=== PATIENT | male | born 1955 | race African-American/Black ===

== ENCOUNTER 2020-03-17 07:52 | Outpatient (REF) | payer OTHER, SELFPAY ==
--- NOTE | 2020-03-17 | US_ITS ---
EXAMINATION: US RETROPERITONEAL LIMITED (AORTA) CLINICAL INFORMATION: Screening. COMPARISON: None TECHNIQUE: Mcintyre-scale, color Doppler and spectral Doppler evaluation of the abdominal aorta. FINDINGS: The aorta is normal. The measurements of the aorta in maximum AP and transverse dimensions respectively are as follows: Proximal: 2.4 x 2.0 cm. Mid: 1.8 x 1.7 cm. Distal: 1.7 x 1.5 cm. PSV: 81 cm/s. The measurements of the common iliac arteries in maximum AP and TRV dimensions are as follows: Right Common Iliac Artery: 1.0 x 0.9 cm. Left Common Iliac Artery: 1.0 x 0.8 cm. US/US aorta IMPRESSION: No evidence of abdominal aortic aneurysm.
== END 2020-03-17 07:53 | disposition home or self-care (01) ==
LOC: HO.US 07:52
PROVIDERS: Visit Provider Internal Medicine
DX: Z13.6 Encounter for screening for cardiovascular disorders (principal)
CPT/HCPCS: 76775

== ENCOUNTER 2020-07-21 10:24 | Outpatient (REF) | payer OTHER, SELFPAY ==
--- NOTE | ~2020-07-21 | US_ITS ---
EXAMINATION: US RETROPERITONEAL LIMITED (RENAL ONLY) CLINICAL INFORMATION: Abdominal pain. COMPARISON: Ultrasound abdomen 03/17/2020 TECHNIQUE: Real-time imaging of the kidneys. FINDINGS: RIGHT KIDNEY: 11.3 x 6.1 x 5.8 cm (SAG x AP x TRV). The kidney is normal in size, contour, and echogenicity. Renal cortical thickness is normal. No calculi or focal parenchymal lesions. No hydronephrosis. LEFT KIDNEY: 12.4 x 6.6 x 5.4 cm (SAG x AP x TRV). The kidney is normal in size, contour, and echogenicity. Renal cortical thickness is normal. No calculi or focal parenchymal lesions. No hydronephrosis. The bladder is decompressed and not evaluated. Bladder appointment has been rescheduled.. US/US renal BI IMPRESSION: Unremarkable renal ultrasound. The bladder ultrasound has been rescheduled.
== END 2020-07-21 10:25 | disposition home or self-care (01) ==
LOC: HO.US 10:24
PROVIDERS: PCP Internal Medicine; Visit Provider Registered Nurse Community Health
DX: R10.9 Unspecified abdominal pain (principal)
CPT/HCPCS: 76775

== ENCOUNTER 2020-07-27 14:23 | Outpatient (REF) | payer OTHER, SELFPAY ==
--- NOTE | ~2020-07-27 | US_ITS ---
EXAMINATION: US PELVIS LIMITED (BLADDER) CLINICAL INFORMATION: Abdominal pain. COMPARISON: Ultrasound renal 11/20/2020. TECHNIQUE: Real-time imaging of the bladder. Grayscale imaging and color Doppler are performed. FINDINGS: The bladder is distended symmetrically and shows no focal wall thickening, diverticulum, calculus, or debris at bladder base. There are ureteral jets at the bladder base. Prevoid bladder volume 158 mL. Postvoid bladder residual volume 3 mL. The prostate is not well visualized. Overall size approximately 27 mL. US/US bladder IMPRESSION: 1. No focal bladder wall thickening or diverticulum. 2. Post void bladder residual volume of only 3 mL. 3. Prostate size approximately 27 mL.
== END 2020-07-27 14:24 | disposition home or self-care (01) ==
LOC: HO.US 14:23
PROVIDERS: Visit Provider Registered Nurse Community Health
DX: R10.9 Unspecified abdominal pain (principal)
CPT/HCPCS: 76857

== ENCOUNTER 2022-12-27 18:59 | Outpatient (REF) | payer OTHER, SELFPAY ==
[2022-12-28 16:40] LABS: H Pylori Breath Test Positive (Negative)
== END 2022-12-27 19:00 | disposition home or self-care (01) ==
LOC: HO.HHCLNP 18:59
PROVIDERS: Visit Provider Internal Medicine
DX: K21.9 Gastro-esophageal reflux disease without esophagitis (principal); Z11.0 Encounter for screening for intestinal infectious diseases
CPT/HCPCS: 83013

== ENCOUNTER 2023-01-04 10:04 | Outpatient (AMB) | payer OTHER, SELFPAY ==
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
[2023-01-04 10:15] VITALS: BP 115/78; PULSE 93; O2SAT 97; BMI 24.5
== END 2023-01-04 10:37 | disposition home or self-care (01) ==
PROVIDERS: PCP Internal Medicine; Visit Provider Nurse Practitioner Family
DX: M47.816 Spondylosis without myelopathy or radiculopathy, lumbar region (principal); M54.16 Radiculopathy, lumbar region; M62.838 Other muscle spasm
CPT/HCPCS: 99204

== ENCOUNTER → 2023-01-04 10:04 | Outpatient (BNVA) | payer OTHER, SELFPAY | PROVIDERS: PCP Internal Medicine; Visit Provider Nurse Practitioner Family ==

== ENCOUNTER 2023-02-05 06:15 | Outpatient (REF) | payer OTHER, SELFPAY ==
--- NOTE | ~2023-02-05 | FL_ITS ---
EXAMINATION: XR FLUOROSCOPY WITH IMAGES CLINICAL INFORMATION: Spondylosis without myelopathy or radiculopathy, lumbar region. COMPARISON: None available. TECHNIQUE: Fluoroscopy Supervised By: Dr. Dwayne Paige. Fluoroscopy Time: 0.4 minutes. Cumulative Dose: 6.00 mGy. DAP: 0.104 Gycm2. Images: 3. FINDINGS: Images demonstrate contrast injection adjacent to the bilateral lateral L3, L4 and L5 vertebrae FL/FL guidance in treatment room IMPRESSION: Fluoroscopy guidance for pain management procedure
== END 2023-02-05 06:16 | disposition home or self-care (01) ==
LOC: CF 06:15
PROVIDERS: Visit Provider Anesthesiology
DX: M47.816 Spondylosis without myelopathy or radiculopathy, lumbar region (principal)
CPT/HCPCS: 64493; 64494; J2795; Q9967

== ENCOUNTER 2023-02-05 10:32 | Outpatient (AMB) | payer OTHER, SELFPAY ==
[2023-02-05 10:58] VITALS: BMI 24.5
--- NOTE | 2023-02-05 10:58 | A.OFFVIS_ITS ---
Intake Vital Signs 02/05/23 10:58 02/05/23 10:58 02/05/23 11:41 Height 5 ft 9 in 5 ft 9 in Weight 166 lb 166 lb BMI 24.5 24.5 BP 110/70 Blood Pressure Location Lt radial Position Sitting Respiration 12 Pulse 79 Pulse Source Pulse Oximeter Pulse Oximetry (%) 98 Oxygen Delivery Method Room Air Comment pre-op post-op Intake Visit Reasons: BILATERAL DIAGNOSTIC L3, L4, DRL5 MBB Allergies No Known Allergies Allergy (Mild, Verified 01/04/23 10:11) NONE PFSH Medical History (Updated 01/04/23 @ 10:39 by Hanh Gtz) Diabetes Osteoarthritis of spine with radiculopathy, lumbar region Left anterior shoulder pain Right arm numbness Positive Helicobacter pylori test Polyp of colon Malignant tumor of prostate Hyperlipidemia Lumbar sprain Hypertension Chronic gastritis Erectile dysfunction GERD (gastroesophageal reflux disease) Epigastric pain Depressive disorder Surgical History (Updated 01/04/23 @ 10:39 by Hanh Gtz) History of implantation of penile prosthesis Social History (Updated 01/04/23 @ 10:33 by Hanh Gtz) Alcohol intake: current Alcohol type: beer Patient Tobacco Use Status: Never used Tobacco Substance Use Type: Crack/Cocaine Physical Exam Vital Signs: Last Vital Signs Pulse 79 02/05/23 11:41 Resp 12 02/05/23 11:41 BP 110/70 02/05/23 11:41 Pulse Ox 98 02/05/23 11:41 Oxygen Delivery Method Room Air 02/05/23 11:41 BMI result Body Mass Index 24.5 Assessment & Plan Assessment & Plan (1) Lumbar spondylosis: Code(s): M47.816 - Spondylosis without myelopathy or radiculopathy, lumbar region Plan Diagnostic medial branch block L3,L4 dorsal ramus L5 bilateral.? ? ?Informed consent was explained to the patient. All questions were explained and? answered.? The patient was taken inside the operating room where she was positioned prone on the operating table. Time-out was performed delineating correct site, side, the nature of the procedure, patient's allergy, . All operating room staff was participating in OR time-out procedure. ? ? The lower back was prepped with ChloraPrep and draped with sterile towels.? C- arm was brought over the operating field and sq picture of L4-, L5 vertebra and S1 AREA were delineated on the screen.? Point of interest were delineated as confluence of superior articular process of L4 and L5 vertebra bilaterally with corresponding transverse processes as well as confluence of the sacral alae bilaterally with superior articular process of S1.? The projection of the point of interest to the skin were injected with the small amount of local anesthetic lidocaine 2% 1-1.5 cc.? After that 22 gauge 3.5 inch spinal needle was driven sequentially to the points of interest in tunnel vision fashion. After needles gently contacted the bone at the point of interests the needle was injected with small amount of the contrast.? The injection of the contrast did not demonstrate any intravascular or intrathecal spread of the contrast.? After that injection of the? ropivacaine 0.5%-1cc was performed at each needle location.??after that the needles were removed and Bandaids were applied. ? Upon completion of the injections? needle was? removed and sterile Band-Aids were applied.? The patient tolerated procedure very well. Orders: Orders FL guidance in treatment room Today M47.816 - Spondylosis without myelopathy or radiculopathy, lumbar region Coding Level of Care Code Procedure Only Diagnoses Lumbar spondylosis M47.816
[2023-02-05 11:41] VITALS: BP 110/70; PULSE 79; RESP 12; O2SAT 98
== END 2023-02-05 11:41 | disposition home or self-care (01) ==
LOC: HO.PMCPRC 10:32
PROVIDERS: PCP Internal Medicine; Visit Provider Anesthesiology
DX: M47.816 Spondylosis without myelopathy or radiculopathy, lumbar region (principal)
CPT/HCPCS: 64493; 64494

== ENCOUNTER 2023-02-12 11:07 | Outpatient (AMB) | payer OTHER, SELFPAY ==
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
[2023-02-12 11:16] VITALS: BP 118/72; PULSE 78; O2SAT 99; BMI 24.4
== END 2023-02-12 11:49 | disposition home or self-care (01) ==
PROVIDERS: PCP Internal Medicine; Visit Provider Nurse Practitioner Family
DX: M54.16 Radiculopathy, lumbar region (principal); M47.816 Spondylosis without myelopathy or radiculopathy, lumbar region; M62.838 Other muscle spasm
CPT/HCPCS: 99214

== ENCOUNTER → 2023-02-12 11:07 | Outpatient (BNVA) | payer OTHER, SELFPAY | PROVIDERS: PCP Internal Medicine; Visit Provider Nurse Practitioner Family | DX: M54.16 Radiculopathy, lumbar region (principal); M47.816 Spondylosis without myelopathy or radiculopathy, lumbar region; M62.838 Other muscle spasm | CPT/HCPCS: 99212 ==

== ENCOUNTER 2023-03-06 10:25 | Outpatient (REF) | payer OTHER, SELFPAY ==
--- NOTE | ~2023-03-06 | XR_ITS ---
EXAMINATION: XR LUMBOSACRAL SPINE WITH OBLIQUES CLINICAL INFORMATION: Low back pain, lumbar radiculopathy COMPARISON: Lumbar spine x-rays on 04/27/2019 TECHNIQUE: AP, both oblique, and lateral views of the lumbar spine. Lateral view of lumbosacral junction, Lateral flexion and extension views of lumbar spine. FINDINGS: The visualized lumbar vertebrae are intact with normal alignment. Intervertebral disc spaces are mildly decreased at L4-L5 and L5-S1 level. Bilateral oblique x-rays of lumbar spine show intact articular processes with no evidence of spondylolysis. Alignment of lumbar spine is normal and stable in flexion and extension. XR/XR lumbar spine 6V w bending IMPRESSION: 1. Unchanged Mild L4-L5 and L5-S1 degenerative lumbar disc disease. 2. No fracture or dislocation of lumbar spine is seen. 3. Normal stable alignment of lumbar spine in flexion and extension is demonstrated.
== END 2023-03-06 10:26 | disposition home or self-care (01) ==
LOC: HO.XRAY 10:25
PROVIDERS: PCP Internal Medicine; Visit Provider Nurse Practitioner Family
DX: M54.16 Radiculopathy, lumbar region (principal); M47.816 Spondylosis without myelopathy or radiculopathy, lumbar region
CPT/HCPCS: 72114

== ENCOUNTER 2023-04-30 06:15 | Outpatient (REF) | payer OTHER, SELFPAY ==
--- NOTE | ~2023-04-30 | FL_ITS ---
EXAMINATION: XR FLUOROSCOPY WITH IMAGES CLINICAL INFORMATION: Spondylosis without myelopathy. COMPARISON: None available. TECHNIQUE: Fluoroscopy Supervised By: Dr. Summer Manriquez. Fluoroscopy Time: 0.5 minutes. Cumulative Dose: 6.06 mGy. DAP: 0.105 Gycm2. Images: 6. FINDINGS: 6 images demonstrate needles on both the left and right sides at what is most likely L4-L5 and L5-S1. FL/FL guidance in treatment room IMPRESSION: Fluoroscopy and spot films provided during lumbar injections.
== END 2023-04-30 06:16 | disposition home or self-care (01) ==
LOC: CF 06:15
PROVIDERS: Visit Provider Anesthesiology
DX: M47.816 Spondylosis without myelopathy or radiculopathy, lumbar region (principal)
CPT/HCPCS: 64493; 64494; J2795; J3301; Q9967

== ENCOUNTER 2023-04-30 13:00 | Outpatient (AMB) | payer OTHER, SELFPAY ==
--- NOTE | 2023-04-30 13:06 | A.OFFVIS_ITS ---
Intake Vital Signs 04/30/23 13:16 04/30/23 13:16 Height 5 ft 9 in 5 ft 9 in Weight 165 lb 4 oz 165 lb 4 oz BMI 24.4 24.4 BP 114/60 116/70 Blood Pressure Location Lt brachial Lt brachial Position Sitting Sitting Respiration 14 14 Pulse 87 84 Pulse Source Pulse Oximeter Pulse Oximeter Pulse Oximetry (%) 96 97 Oxygen Delivery Method Room Air Room Air Comment pre-op Post-op Intake Visit Reasons: BILATERAL THERAPEUTIC L3, L4, L5 MBB Allergies No Known Allergies Allergy (Mild, Verified 04/30/23 13:17) NONE PFSH Medical History Diabetes Osteoarthritis of spine with radiculopathy, lumbar region Left anterior shoulder pain Right arm numbness Positive Helicobacter pylori test Polyp of colon Malignant tumor of prostate Hyperlipidemia Lumbar sprain Hypertension Chronic gastritis Erectile dysfunction GERD (gastroesophageal reflux disease) Epigastric pain Depressive disorder Surgical History History of implantation of penile prosthesis Social History Alcohol intake: current Alcohol type: beer Patient Tobacco Use Status: Never used Tobacco Substance Use Type: Crack/Cocaine Physical Exam Vital Signs: Last Vital Signs Pulse 84 04/30/23 13:16 Resp 14 04/30/23 13:16 BP 116/70 04/30/23 13:16 Pulse Ox 97 04/30/23 13:16 Oxygen Delivery Method Room Air 04/30/23 13:16 BMI result Body Mass Index 24.4 Assessment & Plan Assessment & Plan (1) Lumbar spondylosis: Code(s): M47.816 - Spondylosis without myelopathy or radiculopathy, lumbar region Plan Diagnostic medial branch block L3,L4 dorsal ramus L5 bilateral.? ? ?Informed consent was explained to the patient. All questions were explained and? answered.? The patient was taken inside the operating room where she was positioned prone on the operating table. Time-out was performed delineating correct site, side, the nature of the procedure, patient's allergy, . All operating room staff was participating in OR time-out procedure. ? ? The lower back was prepped with ChloraPrep and draped with sterile towels.? C- arm was brought over the operating field and sq picture of L4-, L5 vertebra and S1 AREA were delineated on the screen.? Point of interest were delineated as confluence of superior articular process of L4 and L5 vertebra bilaterally with corresponding transverse processes as well as confluence of the sacral alae bilaterally with superior articular process of S1.? The projection of the point of interest to the skin were injected with the small amount of local anesthetic lidocaine 2% 1-1.5 cc.? After that 22 gauge 3.5 inch spinal needle was driven sequentially to the points of interest in tunnel vision fashion. After needles gently contacted the bone at the point of interests the needle was injected with small amount of the contrast.? The injection of the contrast did not demonstrate any intravascular or intrathecal spread of the contrast.? After that injection of the? ropivacaine 0.5%-1cc mixed with kenalog was performed at each needle location.?Total dose of kenalog was 40 mg.?after that the needles were removed and Bandaids were applied. ? Upon completion of the injections? needle was? removed and sterile Band-Aids were applied.? The patient tolerated procedure very well. Orders: Orders FL guidance in treatment room Today M47.816 - Spondylosis without myelopathy or radiculopathy, lumbar region Coding Level of Care Code Procedure Only Diagnoses Lumbar spondylosis M47.816
[2023-04-30 13:16] VITALS: BP 114/60; BP 116/70; PULSE 84; PULSE 87; RESP 14; O2SAT 96; O2SAT 97; BMI 24.4
== END 2023-04-30 13:55 | disposition home or self-care (01) ==
LOC: HO.PMCPRC 13:00
PROVIDERS: PCP Internal Medicine; Visit Provider Anesthesiology
DX: M47.816 Spondylosis without myelopathy or radiculopathy, lumbar region (principal)
CPT/HCPCS: 64493; 64494

== ENCOUNTER 2023-05-30 11:21 | Outpatient (AMB) | payer OTHER, SELFPAY ==
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
[2023-05-30 11:27] VITALS: BP 126/74; PULSE 94; RESP 16; O2SAT 97; BMI 24.8
== END 2023-05-30 11:45 | disposition home or self-care (01) ==
PROVIDERS: PCP Internal Medicine; Visit Provider Nurse Practitioner Family
DX: M54.16 Radiculopathy, lumbar region (principal); M54.51 Vertebrogenic low back pain; M47.816 Spondylosis without myelopathy or radiculopathy, lumbar region; M62.838 Other muscle spasm
CPT/HCPCS: 99214

== ENCOUNTER → 2023-05-30 11:21 | Outpatient (BNVA) | payer OTHER, SELFPAY | PROVIDERS: PCP Internal Medicine; Visit Provider Nurse Practitioner Family | DX: M54.16 Radiculopathy, lumbar region (principal); M54.51 Vertebrogenic low back pain; M47.816 Spondylosis without myelopathy or radiculopathy, lumbar region; M62.838 Other muscle spasm | CPT/HCPCS: 99212 ==

== ENCOUNTER 2023-07-01 16:51 | Outpatient (REF) | payer OTHER, SELFPAY ==
--- NOTE | ~2023-07-01 | MR_ITS ---
EXAMINATION: MR LUMBAR SPINE WITHOUT CONTRAST CLINICAL INFORMATION: Lumbar radiculopathy. COMPARISON: Lumbar spine MRI from 05/13/2019. Lumbar spine radiographs from 03/06/2023. CT abdomen and pelvis from 12/20/2020. TECHNIQUE: MRI of the lumbar spine was obtained using routine sequences without contrast. FINDINGS: Straightening of the normal lumbar lordosis. Otherwise, normal anatomic alignment. Moderate degenerative disc disease at L4-L5 and L5-S1. Minimal degenerative disc disease at L1-L2 and L3-L4. Associated mild mixed Modic type discogenic and plate changes including mild metacarpal and vasogenic edema at L5-S1. Lipid rich hemangioma within the T12 vertebral body. No additional suspicious marrow edema. The vertebral body heights are well-maintained. The conus medullaris terminates at the level of L1-L2. The distal spinal cord is normal in appearance. Mild subcutaneous edema within the posterior soft tissues of the back below the level of L5. No additional significant abnormalities of the paraspinal musculature. Limited evaluation of the intra-abdominal structures without significant abnormalities. The abdominal aorta is of normal contour and caliber. AXIAL SPINAL LEVELS: T12-L1: Normal annular contour. There is mild bilateral facet joint arthropathy. There is no neural foraminal stenosis. There is no spinal canal stenosis. L1-L2: Normal annular contour. There is mild bilateral facet joint arthropathy. There is no neural foraminal stenosis. There is no spinal canal stenosis. L2-L3: Shallow diffuse disc bulge. There is mild bilateral facet joint arthropathy. There is no neural foraminal stenosis. There is no spinal canal stenosis. L3-L4: Minimal diffuse disc bulge. There is mild bilateral facet joint arthropathy. There is mild right and no left neural foraminal stenosis. There is no spinal canal stenosis. L4-L5: Moderate diffuse disc bulge with superimposed small central/left subarticular disc extrusion with inferior migration. There is mild bilateral facet joint arthropathy. There is moderate bilateral neural foraminal stenosis. There is stenosis of the left subarticular zone with no overt spinal canal stenosis centrally. L5-S1: Moderate diffuse disc bulge with posterior osseous ridging and superimposed central disc protrusion. There is mild bilateral facet joint arthropathy. There is moderate right and mild left neural foraminal stenosis. There is narrowing of the right-sided radicular zone with no overt spinal canal stenosis centrally. MR/MR lumbar spine wo con IMPRESSION: Mild to moderate multilevel degenerative spondyloarthropathy of the lumbar spine as described in detail above. Most notably, there are moderate neural foraminal stenoses at L4-L5 and L5-S1. Narrowing/stenoses of the subarticular zones at L4-L5 and L5-S1. No overt spinal canal stenosis centrally. Overall, degenerative changes are mildly progressed compared to 2020.
== END 2023-07-01 16:52 | disposition home or self-care (01) ==
LOC: HO.MRI 16:51
PROVIDERS: PCP Internal Medicine; Visit Provider Nurse Practitioner Family
DX: M54.16 Radiculopathy, lumbar region (principal); M54.51 Vertebrogenic low back pain
CPT/HCPCS: 72148

== ENCOUNTER 2023-08-12 11:14 | Outpatient (AMB) | payer OTHER, SELFPAY ==
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
[2023-08-12 11:30] VITALS: BP 141/75; PULSE 77; O2SAT 97; BMI 24.5
== END 2023-08-12 12:12 | disposition home or self-care (01) ==
PROVIDERS: PCP Internal Medicine; Visit Provider Nurse Practitioner Family
DX: M25.561 Pain in right knee (principal); M25.562 Pain in left knee; M47.816 Spondylosis without myelopathy or radiculopathy, lumbar region; M54.16 Radiculopathy, lumbar region; M54.51 Vertebrogenic low back pain; M62.838 Other muscle spasm
CPT/HCPCS: 99214

== ENCOUNTER → 2023-08-12 11:14 | Outpatient (BNVA) | payer OTHER, SELFPAY | PROVIDERS: PCP Internal Medicine; Visit Provider Nurse Practitioner Family | DX: M25.561 Pain in right knee (principal); M25.562 Pain in left knee; M47.816 Spondylosis without myelopathy or radiculopathy, lumbar region; M54.16 Radiculopathy, lumbar region; M54.51 Vertebrogenic low back pain; M62.838 Other muscle spasm | CPT/HCPCS: 99212 ==

== ENCOUNTER 2023-08-19 10:00 | Outpatient (AMB) | payer OTHER, SELFPAY ==
--- NOTE | 2023-08-19 10:03 | A.SPINEOV_ITS ---
Intake Visit Reasons: Radiculopathy, lumbar region Intake Note: Mr. Rooney is here today c/o low back sciatica pain that radiates to both legs Business Transformation Consultant Required: Yes Business Transformation Consultant Name: Tablet Allergies No Known Allergies Allergy (Mild, Verified 08/19/23 10:17) NONE Assessment & Plan Assessment & Plan (1) Vertebrogenic low back pain: Code(s): M54.51 - Vertebrogenic low back pain Category: Medical Plan Dear Cherri, Thank you for referring Mr Rooney to our office today. This is a 67-year-old who has had back pain for many years. The back pain is centralized in the lower lumbar region. It will radiate down to his anterior thighs at times. He tells me that it is aggravated in all situations in all positions. Lying down is just as uncomfortable as sitting up as is walking etc.. He is trialed conservative treatment in the form of chiropractic, injections and acupuncture. He did get good relief from the dorsal rami median branch blocks that were done by your office but is worried about the chronic effects of the steroids in his bones. He did not try any formal physical therapy he tells me. He has very little quality of life because of the pain. He was sent today for evaluation in setting of an MRI showing degenerative disc disease. PMH: He is a diabetic, he does not know what his A1c is but was told by his primary care physician that it was well controlled. He has history of high blood pressure. Outside of that he does not report any major medical problems other than a prostatectomy that was done because it was felt the patient had precancerous findings in his prostate. He voids normally. He tells me that he has no problems with his heart, lungs, kidneys, abdomen, liver, no history of coagulopathies bleeding disorders blood clots etc. Social hx: He does not smoke, drink or use any recreational drugs Medications: Baby aspirin, Klonopin, diclofenac gel, Jardiance, gabapentin, glimepiride, ibuprofen, ketoconazole, lansoprazole, lisinopril, loratadine, methocarbamol, oxybutynin, quetiapine, tramadol Allergies: None Physical exam: He is uncomfortable with standing, is very limited range of motion with getting vertical. He does not demonstrate any signs of weakness in his legs but has a lot of pain with manipulation of his legs but no true motor dysfunction. Reflexes are absent at the patella and the Achilles. Imaging review: He has a lumbar MRI done at [facility] as well as flexion-extension x-rays. At L4-5 there is mlfh-gu-epoegzlm disc degeneration with left-sided disc bulge which is contacting the left L5 nerve root. This is consistent with MRI done in 2020 looks almost exactly the same. He has moderate disc degeneration at L5-S1 with no obvious contact of the nerve structures either central canal or in the foramen. This is also consistent with his MRI 2020. I do not see any evidence of instability on flexion-extension with his x- rays done last year. I will repeat these as a precautionary measure. Impression: 67-year-old male presents with what is primarily back pain with intermittent radiculopathy done to the front of his thighs. He has hobq-ni-fzpcnoty disc degeneration at L4-5 with a left-sided only disc bulge contacting the left L5 nerve root which appears to be stable over the last 4 years. He has moderate disc degeneration at L5-S1. Again this is unchanged over the course of 4 years. Overall his alignment and disc quality is really not all that bad and has not changed over the course of 4 years despite his pain getting worse. I am not sure if his symptoms are discogenic, but may rather be coming from something in the soft tissues of the back. I am going to repeat flexion-extension x-rays as a precaution but his previous set did not show any signs of instability or structural changes in the vertical posture. If he had something more consistent with a strict radiculopathy on the left we might be willing to offer him a radiculopathy but as of right now both of his legs have pain and discomfort. I am going to review his imaging with Dr. Yost see if he has any other thoughts. Thank you for allowing us to care for your patient. The total time spent with this visit with this patient was 45 minutes reviewing history, physical exam, lumbar imaging review, and implementation of treatment plan or further diagnostic testing Elvis Yost MD,PhD [facility] Orders: Orders XR lumbar spine 4V min Today M54.51 - Vertebrogenic low back pain Coding Level of Care Code New Pt Level 4 (47042) Diagnoses Vertebrogenic low back pain M54.51
== END 2023-08-19 11:51 | disposition home or self-care (01) ==
PROVIDERS: PCP Internal Medicine; Referring Provider Nurse Practitioner Family; Visit Provider Physician Assistant
DX: M54.51 Vertebrogenic low back pain (principal)
CPT/HCPCS: 99204

== ENCOUNTER 2023-08-19 10:00 | Outpatient (REF) | payer OTHER, SELFPAY ==
--- NOTE | ~2023-08-19 | XR_ITS ---
EXAMINATION: XR LUMBOSACRAL SPINE WITH OBLIQUES CLINICAL INFORMATION: Vertebrogenic low back pain. COMPARISON: MRI lumbar spine 07/01/2023. Lumbar spine radiographs 03/06/2023. TECHNIQUE: 4 views of the lumbosacral spine including AP, lateral neutral, flexion and extension views. FINDINGS: Slight levoscoliosis of the lumbar spine. Degenerative changes in the bilateral sacroiliac joints. Facet arthritis in the lower lumbar spine. Mild loss of disc space height at L4-L5 and L5-S1. Alignment maintained on flexion and extension views. XR/XR lumbar spine 4V min IMPRESSION: Mild degenerative disc disease at L4-L5 and L5-S1.
== END 2023-08-19 10:01 | disposition home or self-care (01) ==
LOC: HO.HOSX 10:00
PROVIDERS: PCP Internal Medicine; Visit Provider Physician Assistant
DX: M51.17 Intervertebral disc disorders with radiculopathy, lumbosacral region (principal)
CPT/HCPCS: 72110; 99202

== ENCOUNTER 2024-01-14 10:10 | Outpatient (REF) | payer OTHER, SELFPAY ==
[2024-01-14 12:13] LABS: C Reactive Protein 0.18 mg/dL (< or = 0.50)
[2024-01-14 12:23] LABS: Erythrocyte Sedimentation Rate 2 MM/HR (0-15)
[2024-01-14 12:41] LABS: Folate 18.1 ng/mL (> or = 4.0); Vitamin B12 > 2000 pg/mL (200-900)
[2024-01-14 12:55] LABS: Syphilis Screen Nonreactive (Nonreactive)
[2024-01-16 13:43] LABS: Anti Nuclear Antibody Screen NEGATIVE (NEGATIVE)
== END 2024-01-14 10:11 | disposition home or self-care (01) ==
LOC: HO.HHCL 10:10
PROVIDERS: Visit Provider Internal Medicine
DX: R20.0 Anesthesia of skin (principal); R20.2 Paresthesia of skin
CPT/HCPCS: 36415; 82607; 82746; 85652; 86038; 86140; 86780

== ENCOUNTER 2024-07-14 10:23 | Outpatient (REF) | payer OTHER, SELFPAY ==
[2024-07-14 11:41] LABS: Anion Gap 11 (12-20); Blood Urea Nitrogen 22 mg/dL (9-16); Calcium 9.6 mg/dL (8.4-10.2); Carbon Dioxide 27 mmol/L (22-29); Chloride 107 mmol/L (96-108); Cholesterol 163 mg/dL (<200); Estimated Glomerular Filt Rate > 60; Glucose Random 150 mg/dL (60-115); HDL Cholesterol 42 mg/dL (>40); LDL Cholesterol Calculated 75 mg/dL (<100); Potassium 4.1 mmol/L (3.3-5.1); Sodium 141 mmol/L (135-145); Triglycerides 233 mg/dL (<150)
[2024-07-14 12:12] LABS: Creatinine Urine 38.07 mg/dL; Microalbumin Urine < 5.0 mg/L
--- OUTSIDE RECORDS SUMMARY | 2024-07-14 12:20 | XMS_ITS | Clinical Summary ---
Author Organization [facility] Address [address] [place] [address] Care Team Providers Care Before School Name Role Phone Unavailable Primary Care Provider Unavailabl e Source Comments PLEASE NOTE, if this patient is a minor, it may be UNLAWFUL to discuss sensitive information that is contained in these records (such as FAMILY PLANNING, MENTAL HEALTH or SUBSTANCE ABUSE) with the minor patient's parent or other person without the patient's specific authorization.[facility] Allergies No known active allergies Medications chlorhexidine gluconate (PERIDEX) 0.12 % solutionIndicati ons:Gingivitis Swish and spit 15 mL 2 (two) times daily 473 mL 10/22/2018 Active Active Problems No known active problems Encounters Date Type Department Care Team Description 07/07/2024 2:00 PM EDT Office Visit [facility] [address] [place] [address] Curt Rojas DMD from Last 3 Months Social History Tobacco Use Types Packs/Day Years Used Date Smoking Tobacco: Never Smokeless Tobacco: Never Tobacco Cessation:Counseling Given: Not Answered Social Connections Answer Date Recorded Connectedness 0 01/12/2022 Financial Resource Strain Answer Date R ecorded Financial Resource Strain 0 2021 Stress Answer Date Recorded Stress 0 01/12/2022 Physical Activity Answer Date Recorded Physical Activity 0 01/12/2022 Food Insecurity Answer Date Recorded Food 0 01/12/2022 Transportation Needs Answer Date Record ed Transportation 0 01/12/2022 Housing Stability Answer Date Recorded Housing 0 01/12/2022 Safety and Environment Answer Date González rded Safety 0 01/12/2022 Utilities Answer Date Recorded Utilities 0 01/12/2022 Employment Answer Date Recorded Stress 0 01/12/2022 Sex and Gender Information Value Date Recorded Sex Assigned at Not on file Legal Sex Male 6:50 AM PDT Gender Identity Not on file Sexual Orientation Not on file Last Filed Vital Signs Vital Sign Reading Time Taken Comments Blood Pressure 185/99 03/27/2024 10:27 AM EST Pulse 98 03/27/2024 10:27 AM EST Temperature - - Respiratory Rate - - Oxygen Saturation - - Inhaled Oxygen Concentration - - Weight - - Height - - Body Mass Index - - Plan of Treatment Upcoming Encounters Date Type Department Care Team (Late st Contact Info) Description 07/16/2024 9:40 AM EDT Office Visit [facility] [address] [place] [phone] Eris Boateng [facility] [address] [place] [address] 08/12/2024 10:20 AM EDT Office Visit [facility] [address] [place] [phone] Eris Boateng [address] [place] [address] Health Maintenance Due Date Last Done Comments Dental FMX/Pano 1955 Medicare Annual Wellness Visit 10/14/1971 CT Colonography 1998 Colonoscopy 1998 Colorectal Cancer Screening 1998 FIT/gFOBT 1998 Fecal DNA 1998 Flexible Sigmoidoscopy 1998 Imm-Zoster, Recombinant (1 of 2) 10/14/2003 Falls Prevention 2018 [id number] ( season) 2023 10/05/2021, 04/19/2021, 06/30/2020, Additional history exists Alcohol and Drug Screen 04/08/2024 Depression Annual Screen 04/08/2024 Dental BW 01/17/2025 01/16/2024, 08/07/2022 Dental Examination 01/17/2025 01/16/2024, 0 08/07/2022, 11/06/2021 Dental Perio Charting 01/17/2025 01/16/2024 , 08/07/2022, 11/06/2021 Dental Prophy 01/17/2025 01/16/2024, 0609/2023, 08/07/2022, Additional history exists Hypertension Screening (#1) 03/27/2025 Tobacco Screening 07/07/2025 07/07/2024 Lipid Screening 03/15/2027 03/15/2022 Diabetes Screening 06/04/2027 06/04/2024, 1 , 08/05/2023, Additional history exists Imm-DTaP/Tdap/Td (3 - Td or Tdap) 12/27/2032 12/27/2022, 07/23/2012, 05/02/2006 Hepatitis C Screening Completed 03/15/2022 Imm-Pneumococcal 65+ Completed 12/27/2022, 02/13/2016, 08/06/2012, Additional history exists Imm-Influenza Completed 12/02/2023, 12/07, 01/02/2019, Additional history exists Procedures Procedure Name Priority Date/Time Associated Diagnosis Comments COMP PERIODONTAL EVALUATION - NEW/EST PATIENT Routine 01/16/2024 9:40 AM EDT Encounter for dental examination BITEWINGS - TWO RADIOGRAPHIC IMAGES Routine 01/16/2024 9:40 AM EDT Encounter for dental examination PROPHYLAXIS - ADULT Routine 01/16/2024 9 :40 AM EDT Encounter for dental examination PERIODIC ORAL EVALUATION ESTABLISHED PATIENT Routine 01/16/2024 9:40 AM EDT Encounter for dental examination from Last 3 Months or Most Recently Relevant to Health Maintenance Insurance [facility]
--- OUTSIDE RECORDS SUMMARY | 2024-07-14 12:20 | XMS_ITS | Clinical Summary ---
Author Organization [employer] Address [address] [place] [address] Care Team Providers Care Sound Equipment Mechanic Name Role Phone Kalee Kwong MD Primary Care Provider + Allergies No known active allergies Medications Alcohol Swabs pads Use when testing BG daily and prn 05/08/19 13 Active clonazePAM (KlonoPIN) 1 MG tablet Take 1 tablet by mouth at bedtime. Active ibuprofen 600 MG tablet Take 1 tablet by mouth in the morning and 1 tablet at noon and 1 tablet in the evening. 08/02/19 21 Active QUEtiapine (SEROquel) 100 MG tablet take 1 tablet by oral route qhs Active Diclofenac Sodium 1 % gelIndications:Low back pain associated with a spinal disorder other than radiculopathy or spinal stenosis APPLY 2 GRAMS TO THE AFFECTED AREA THREE TIMES A DAY 100 g 1 03/19/20 23 Active loratadine (Claritin) 10 MG tabletIndications:Seaso nal allergies TAKE 1 TABLET BY MOUTH EVERY DAY 90 tablet 1 06/12/19 24 Active methocarbamol (Robaxin) 750 MG tablet Take 1 tablet (750 mg) by mouth 2 times daily for 14 days. 28 tablet 08/05/19 24 Active docusate sodium (Colace) 100 MG capsuleIndications:Slow transit constipation TAKE 1 CAPSULE BY MOUTH TWICE A DAY 180 capsule 3 08/09/19 24 Active lansoprazole (Prevacid) [address] capsule TAKE 1 CAPSULE BY MOUTH TWICE A DAY BEFORE A MEAL 180 capsule 2 08/19/19 24 Active ketoconazole (NIZOral) 2 % cream APPLY TOPICALLY TWICE DAILY TO AFFECTED AREAS 60 g 3 11/01/19 24 Active Aspirin Low Dose 81 MG EC tablet TOME BANDAR TABLETA TODOS LOS BAUER 90 tablet 3 11/05/19 24 Active glimepiride (Amaryl) 4 MG tabletIndications:Diabe chacorta mellitus type 2 in nonobese (CMS/HCC) TAKE 1 TABLET BY MOUTH EVERY DAY 90 tablet 3 11/05/19 24 Active FreeStyle lancetsIndications:Diab etes mellitus type 2 in nonobese (CMS/HCC) USE TO TEST BLOOD SUGAR EVERY DAY 100 each 3 01/22/20 24 Active oxybutynin (Ditropan) 5 MG tabletIndications:Overa ctive bladder TAKE 1 TABLET BY MOUTH EVERY DAY 90 tablet 3 01/29/20 24 Active lisinopril 10 MG tabletIndications:Prima ry hypertension TOME 1 TABLETA POR VIA ORAL TODOS LOS BAUER 90 tablet 1 02/11/20 24 Active gabapentin (Neurontin) 100 MG capsule Take 1 capsule (100 mg) by mouth 2 times daily. 60 capsule 3 02/28/20 24 025 Active Ascorbic Acid (vitamin C) 500 MG tabletIndications:Need for prophylaxis against urinary tract infection TAKE 1 TABLET BY MOUTH EVERY MORNING 90 tablet 1 03/23/20 24 Active glucose blood (FREESTYLE LITE) test stripIndications:Diabet es mellitus type 2 in nonobese (CMS/HCC) USE STRIPS TO TEST BLOOD SUGARS DAILY NEEDED. 50 strip 5 03/23/20 24 Active atorvastatin (Lipitor) 40 MG tabletIndications:Mixed hypercholesterolemia and hypertriglyceridemia,Hy perlipidemia LDL goal <100 TAKE 1 TABLET BY MOUTH AT BEDTIME 90 tablet 3 05/06/19 25 Active empagliflozin-linaglipt in (Glyxambi) 25-5 MG Take 1 tablet by mouth Once per day. 30 tablet 11 06/04/19 25 026 Active Active Problems Problem Noted Date Diagnosed Date Numbness and tingling 01/13/2024 Assessment & Plan (02/28/2024 10:34 AM EST): Most likely due to uncontrolled DM. Advised importance of tight control of DM and exercise/diet modifications. Will start low dose of Gabapentin if Sx do not resolve after weeks of above plan of care. Assessment & Plan (01/13/2024 3:50 PM EDT): - seems to be related to DM neuropathy, will r/o other conditions including hypersensitivity reactions - order labs - advised regarding tight control of DM, will check finger sticks every day at different times of the day Diabetes due to undrl condition w oth diabetic n euro comp 04/30/2023 Assessment & Plan (04/30/2023 3:27 PM EST): Much better controlled. Neuropathy has improved. Encounter for preventive health examination 12/08 Assessment & Plan (12/27/2022 10:15 AM EDT): Discussed with patient re increase fresh fruit and vegetable intake. Counseled re moderate exercise as tolerated, up to 20min/d Patient feels safe at home. Colon Up to date, next one 2027 Eye exam Reportedly 2021 not available at this time CRC screen Up to date Lipids/FBS To be ordered Vaccinations He will have PCV 20 + PNA. Recommended COVID IZ when available. All other IZ up to date. Dental visit Up to date, next one due Feb 2023 Left anterior shoulder pain 08/13/2022 Assessment & Plan (12/27/2022 10:00 AM EDT): Pt want to be referred to different PT, will send a new referral. Assessment & Plan (08/13/2022 3:14 PM EDT): refer to PT as above. symptoms likely related to cervical radiculopathy Right arm numbness 06/28/2022 Assessment & Plan (06/28/2022 2:15 PM EDT): Most likely c-spine disease, exacerbated by lifting heavy weights. recommended stretching exercises before weight lifting. take tylenol PRN and slow down on weight lifting. will order x-ray of the c-spine given history of disc disease of the lower spine. Osteoarthritis of spine with radiculopathy, lumb ar region 06/28/2022 Assessment & Plan (09/16/2023 5:00 PM EDT): Mildly improving. He's still looking for a second opinion re epidurals vs surgical approach. He'll call back [facility] pain clinic for his appt vs schedule an appt with desired Pain clinic and will call me back for a referral. Continue stretching at home, tylenol , flexeril and diclofenac prn. Assessment & Plan (08/05/2023 1:13 PM EDT): - pt has spine foraminal stenosis, partially improving with epidural injections - pt has had follow up at [facility] pain clinic, he wants a second opinion. New referral will be put in place - start Gabapentin 100 mg BID + Tylenol PRN - recommended gentle stretching exercises - labs to go immediately to ED, dicussed with pt urinary retention, persistent leg weakness/inability to walk, persistent leg weakness Assessment & Plan (04/30/2023 3:27 PM EST): Sp PT, acupuncture. Epidural injections pending later this week. May need to go back to PT after that. Assessment & Plan (12/27/2022 10:13 AM EDT): He completed multiple PT sessions, recommended heat to affected area, acupuncture, and Tylenol PRN. Refer to pain clinic. Assessment & Plan (08/13/2022 3:14 PM EDT): xray of c-spine showed no djd changes and pt has known djd of the spine. symptoms are likely related to cervical radiculopathy. refer to PT and recommended acupuncture. Use tylenol and tramadol ac PT and prn severe pain. FU in 2 months Assessment & Plan (06/28/2022 2:16 PM EDT): Pt is doing well at this time with exercise, has history of epidural inections. recommended to cut down on weight lifting and use lumbar brace when needed for weight lifting recounsult PRN continue to do exercise. Fall 03/10/2022 Gastroesophageal reflux disease 03/10/2022 Assessment & Plan (02/08/2023 12:09 PM EDT): See H-Pylori Assessment & Plan (12/27/2022 10:12 AM EDT): Recommended to avoid aspirin and Vit-C for 2 weeks, recommended to avoid ibuprofen and take tylenol instead. Will order Helicobacter pylori breathing test and will refer to GI. 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 We discussed about avoiding consumption of highly saturated fats or trans fats. FU lipids in 6m Lumbar sprain 03/10/2022 Assessment & Plan (02/08/2023 12:08 PM EDT): Significantly improved, s/p steroid injections Cont diclofenac sodium + tylenol PRN + flexeril PRN FU with pain clinic PRN and encouraged to continue exercise Paresthesia of right upper limb 03/10/2022 Polyp of colon 03/10/2022 Right flank pain 03/10/2022 Slow transit constipation 03/10/2022 Assessment & Plan (03/26/2022 2:53 PM EST): Increase colace to BID. If no improvement, In 1m, he can hold atorvastatin x 2w and callback to replace med if sxs are resolved. Encouraged increase water intake (drinks at least 6 water bottles per day) Helicobacter pylori gastritis (chronic gastritis ) 07/23/2018 Overview (01/06/2023): Replace inactive dx Assessment & Plan (02/08/2023 12:09 PM EDT): Persistent despite several antibiotic treatments in the past. Recommended to schedule appointment with GI, he declines to try antibiotics again. Chronic bilateral low back pain with left-sided sciatica 05/15/2018 Assessment & Plan (08/05/2023 12:20 PM EDT): - see above Assessment & Plan (11/08/2022 1:47 PM EDT): improving with exercise, flexiril counseled to slowly escalating weight lifting he can use a back brace, caution with its use to prevent further injuries, he is aware that insurance may or may not cover it, prescription had been sent 06/27/22, will fu with DME provider Epigastric pain 05/15/2018 Positive Helicobacter pylori test 05/15/2018 Hypertriglyceridemia 07/14/2012 Assessment & Plan (02/08/2023 12:10 PM EDT): Controlled, no need for additional medications at this time Encouraged to continue lifetime modifications, increase fiber and fish Erectile dysfunction 10/01/2011 Overview (11/08/2022): Sp penile prosthesis ([employer])on 08/2021 [facility]. Assessment & Plan (11/08/2022 1:47 PM EDT): doing well s/p penile prosthesis fu with urology Depressive disorder 09/07/2011 Diabetes mellitus type 2 in nonobese 09/07/2011 Assessment & Plan (06/04/2024 1:34 PM EST): Uncontrolled. I will add Linagliptin 5 mg (will do combo Glyxambi 25-5) and fu in 6 weeks. Fgstk twice a day. Will refer to rail car repairer. Assessment & Plan (02/28/2024 10:35 AM EST): Getting out of control. Pt will start increasing exercise and going to the gym, increasing water intake instead of sugary drinks. Continue Jardiance and Amaryl same dose, follow up with labs in 3 months. Assessment & Plan (01/13/2024 3:52 PM EDT): Controlled. A1c is at goal, pt seems to be having hyperglycemia as well, probably related to large fluctuation in blood sugar levels Continue on Jardiance and Glimepiride Counseled re more frequent low calorie/carb meals. Check fgstk once daily Encouraged physical activity as tolerated. FU in 3 months. Assessment & Plan (09/16/2023 4:55 PM EDT): It's probably controlled. Due for A1c in 2-3m No change in meds, see previous note. Assessment & Plan (08/05/2023 1:14 PM EDT): - fairly controlled, A1C is probably higher due to pt decreased exercise Assessment & Plan (04/30/2023 10:57 AM EST): Controlled. A1c is at goal. Continue on Glimepiride and Jardiance Counseled re more frequent low calorie/carb meals. Check fgstk 2x daily Encouraged physical activity as tolerated. FU in 3 months. Assessment & Plan (02/08/2023 11:16 AM EDT): Controlled. Last month A1c was at goal. Continue on Amaryl and Jardiance Counseled re more frequent low calorie/carb meals. Check fgstk daily Encouraged physical activity as tolerated. Labs on 12/27/22 showed positive H-Pylori test (breathing test). He did not have any other blood work from the appointment. He tried multiple antibiotic Tx in the past w/ Neg test of Q. FU in 4 months. Assessment & Plan (12/27/2022 10:12 AM EDT): Controlled. A1c is at goal. Continue on Amaryl and jardiance Counseled re more frequent low calorie/carb meals. Check fgstk daily Encouraged physical activity as tolerated. FU in 4 months. Assessment & Plan (11/08/2022 1:48 PM EDT): Controlled. A1C is at goal. will lower amaryl to 4mg daily + jardiance 25mg and fu in 3 months Counseled re more frequent low calorie/carb meals. Encouraged physical activity as tolerated. Assessment & Plan (08/13/2022 3:15 PM EDT): Controlled. no change in medication, see previous note Assessment & Plan (06/28/2022 2:18 PM EDT): Controlled. A1C is at goal Continue Jardiance 25 + Amiril 6 mg per day Monitor fingersticks daily, prevention of hyopglcyemia by having a qhs snack. FU in 3-4 weeks with fingersticks at different times of the day and will see if meds need to be adjusted. Counseled re more frequent low calorie/carb meals. Encouraged physical activity as tolerated. Assessment & Plan (03/26/2022 3:32 PM EST): Improving Continue on Jardiance + Amaryl, tolerates well Counseled re more frequent low calorie/carb meals. Check fgstk 1x daily at different times of the day every day Encouraged physical activity as tolerated. FU in 3 months. Hypertension 09/07/2011 Assessment & Plan (06/04/2024 1:33 PM EST): Controlled. Compliant w/meds Continue lisinopril. Counseled re low salt diet/increase moderate physical activity. Check home BP BIW and prn CP/SHOEMAKER/PETERSON Non smoking patient. Assessment & Plan (04/30/2023 3:28 PM EST): Controlled, repeated is 140/80. Compliant w/meds Continue lisinopril 10mg/d Counseled re low salt diet/increase moderate physical activity. Check home BP BIW and prn CP/SHOEMAKER/PETERSON Non smoking patient. Assessment & Plan (06/28/2022 2:17 PM EDT): Borderline controlled. Continue lisinopril 10 mg. Counseled re low salt diet/increase moderate physical activity. Check home BP BIW and prn CP/SHOEMAKER/PETERSON Non smoking patient. Assessment & Plan (03/26/2022 2:52 PM EST): Borderline controlled Counseled re low salt diet/increase moderate physical activity. Check home BP BIW and prn CP/SHOEMAKER/PETERSON Non smoking patient. Fu in 3m Malignant tumor of prostate 09/07/2011 Overview (04/30/2023): s/p radical prostatectomy 2009 followed by [facility]. Assessment & Plan (04/30/2023 3:28 PM EST): Sp radical prostatectomy FU with . Assessment & Plan (11/08/2022 1:48 PM EDT): s/p radical prostatectomy 2009 followed by Urology. Encounters Date Type Department Care Team Description 07/14/2024 Travel 07/06/2024 9:00 AM EDT Nutrition [facility] [address] [place] [id number] Type 2 diabetes mellitus without obesity (CMS/HCC) (Primary Dx) 07/06/2024 Telephone [facility] [address] [place] [phone] Kalee Kwong MD telephone call 07/06/2024 Travel 06/04/2024 10:30 AM EST Office Visit [facility] [address] [place] [phone] Kalee Kwong MD Diabetes mellitus type 2 in nonobese (CMS/HCC) (Primary Dx); Primary hypertension 06/04/[address] [phone] Kalee Kwong MD Results 06/04/2024 Travel 06/01/[address] [phone] Kalee Kwong MD Chart prep 05/21/[address] [phone] Kalee Kwong MD Returning call 05/21/2024 Patient Outreach [facility] [address] [place] [address] [phone] Kalee Kwong MD Pre-visit Planning ((Unable to reach for PVP screening, LVM)) 05/06/2024 Refill [facility] [address] [place] [address] Kalee Kwong MD Mixed hypercholesterolemia and hypertriglyceridemia; Hyperlipidemia LDL goal <100 from Last 3 Months Immunizations Name Administration Dates Next Due Hep B, adult 05/20/2009,11/18/2008,10/18/2008 Influenza High-dose Quadriva lent Preservative Free 12/22/2021 Influenza Injectable Quadriv alant Preservative Free IIV4 MDCK 01/11/2017 Influenza Quadrivalent Adjuvanted 12/11/2022,,12/19/2019 Influenza injectable quadriv alent preservative free 12/31/2017,02/01/2016 Influenza, High Dose Seasona l, Preservative Free 12/02/2023,01/02/2019 Influenza, IIV3, injectable 12/22/2021, 1 Influenza, Split (incl. edison fied surface antigen) 12/31/2011 Moderna Covid-19 Vaccine 12+ 10/05/2021, 04/19/2021,06/30/2020,06/02 Pneumococcal Conjugate PCV 20 12/27/2022 Pneumococcal Polysaccharide PPSV23 02/13/2016,,03/15/2005 TD (adult), 2 Lf tetanus tox oid, preservative free, adsorbed 05/02/2006 Tdap 12/27/2022,07/23/2012 Zoster, Recombinant 03/29/2020,01/22/2020 Social History Tobacco Use Types Packs/Day Years Used Date Smoking Tobacco: Never Smokeless Tobacco: Never Tobacco Cessation:Counseling Given: Not Answered Alcohol Use Standard Drinks/Week Comments Yes 0 (1 standard drink = 0.6 oz pur e alcohol) oca Depression Answer Date Recorded Patient Health Questionnaire-9 Score 0 02/28/2024 Patient Health Questionnaire-9 Score 0 02/28/2024 Last PHQ-9: Questionnaire Data Not on file 1 04/29/2023 Housing Stability Answer Date Recorded What is your housing situation today? I have cindijayden navarro 02/28/[address] you li ve. Do you have problems with any of the following? None of the above 02/28/2024 Food Insecurity Answer Date Recorded Within the past 12 months, y ou worried that your food would run out before you got money to buy more: Never True 02/28/2024 Within the past 12 months,th e food you bought just didn't last and you didn't have enough money to get more: Never True Transportation Answer Date Recorded In the past 12 months, has l ack of transportation kept you from medical appts, meetings, work or from getting things needed for daily living? No 02/28/2024 Utilities Answer Date Recorded In the past 12 months, has t he electric, gas, oil or water company threatened to shut off services in your home? No 02/28/2024 Depression Answer Date Recorded Patient Health Questionnaire-2 Score 0 02/28/2024 Internet Access Answer Date Recorded Internet Access Q1 Yes 02/28/2024 Internet Access Q2 Not on file 02/28/2024 Sex and Gender Information Value Date Recorded Sex Assigned at Male 02/05/2022 10:18 AM EDT Legal Sex Male 10:18 AM EDT Gender Identity Male 02/05/2022 10:18 AM EDT Sexual Orientation Straight 02/05/2022 10 :18 AM EDT Last Filed Vital Signs Vital Sign Reading Time Taken Comments Blood Pressure 120/82 06/04/2024 10:40 AM EST Pulse 74 06/04/2024 10:24 AM EST Temperature 35.9 ??C (96.7 ??F) 06/04/2024 10:[address] Respiratory Rate 18 02/28/2024 9:57 AM EST Oxygen Saturation 97% 06/04/2024 10:24 AM EST Inhaled Oxygen Concentration - - Weight 73.8 kg (162 lb 9.6 oz) 07/07/2024 4:41 P M EDT Height 175.3 cm (5' 9 ) 07/07/2024 4:41 PM EDT Body Mass Index 24.01 07/07/2024 4:41 PM EDT Plan of Treatment Upcoming Encounters Date Type Department Care Team (Late st Contact Info) Description 08/03/2024 2:00 PM EDT Clinical Support [facility] [address] [place] [address] [place] [address] 08/14/2024 9:00 AM EDT Office Visit [facility] [address] [place] [address] Kalee Kwong MD [address] [place] [address] Health Maintenance Due Date Last Done Comments CT Colonography 1953 FIT DNA/Cologuard 1953 FIT 1953 FOBT 1953 Sigmoidoscopy 1953 Alcohol/Substance Use Screening 1965 Diabetes: Urine Protein Screening 03/15/2023 07/14/2024, 03/15/2022, 01/15/2020 Lipid Panel 03/15/2023 07/14/2024, 1211/2021, 05/05/2021, Additional history exists Eye Exam 05/14/2024 05/14/2022 Diabetes: Hemoglobin A1C 09/01/2024 025, 01/13/2024, 08/05/2023, Additional history exists Depression Screening 02/27/2025 02/28/2024, 02/28/20 24 Diabetes: Foot Exam 02/27/2025 02/28/2024, 02/28/2024, 02/28/2024, Additional history exists SDOH Screening 02/27/2025 02/28/2024 Tobacco Screening 06/04/2025 06/04/2024 Colonoscopy 08/22/2027 08/21/2022, 02/11/2019 Colorectal Cancer Screening 08/22/2027 RSV Patients and Patients Aged 60 years or older (1 - 1-dose 75+ series) 2028 DTaP/Tdap/Td Vaccines (3 - Td or Tdap) 12/27/2032 12/27/2022, 07/23/2012, 05/02/2006 Hepatitis B Vaccines Completed 05/20/2009, 11/18/2008, 10/18/2008 Zoster Vaccines Completed 03/29/2020, 01/22/2020 Hepatitis C Screening Completed 03/15/2022 Pneumococcal Vaccine: 50+ Years Completed 12/27/2022, 02/13/2016, 08/06/2012, Additional history exists Influenza Vaccine Completed 12/02/2023, , 12/22/2021, Additional history exists COVID-19 Vaccine Completed 12/16/2023, 07/2022, 10/05/2021, Additional history exists HIB Vaccines Aged Out No longer eligi ble based on patient's age to complete this topic HPV Vaccines Aged Out No longer eligi ble based on patient's age to complete this topic Hepatitis A Vaccines Aged Out No long er eligible based on patient's age to complete this topic IPV Vaccines Aged Out No longer eligi ble based on patient's age to complete this topic Meningococcal Vaccine Aged Out No letitia quita eligible based on patient's age to complete this topic RSV under 20 months Aged Out No longe r eligible based on patient's age to complete this topic Rotavirus Vaccines Aged Out No longer eligible based on patient's age to complete this topic Procedures Procedure Name Priority Date/Time Associated Diagnosis Comments LIPID PANEL WITH REFLEX TO DIRECT LDL Routine 07/14/2024 10:26 AM EDT Diabetes mellitus type 2 in nonobese (CMS/HCC) ALBUMIN, RANDOM URINE W/CREATININE Routine 07/14/2024 10:26 AM EDT Diabetes mellitus type 2 in nonobese (CMS/HCC) BASIC METABOLIC PANEL Routine 07/14/2024 10:26 AM EDT Diabetes mellitus type 2 in nonobese (CMS/HCC) POCT GLYCATED HEMOGLOBIN, TOTAL Routine 06/04/2024 10:37 AM EST Diabetes mellitus type 2 in nonobese (CMS/HCC) POCT GLUCOSE Routine 06/04/2024 10:27 AM EST Diabetes mellitus type 2 in nonobese (CMS/HCC) HM COLONOSCOPY Routine 08/21/2022 9:55 AM EDT HEPATITIS C AB W/REFL TO HCV RNA, QN, PCR Routine 03/15/2022 11:18 AM EST from Last 3 Months or Most Recently Relevant to Health Maintenance Results * Albumin, Random Urine W/Creatinine (07/14/2024 10:26 AM EDT) Creatinine, Urine 38.07 mg/dL [facility] Microalbumin Urine <5.0 mg/L [facility] Microalbum Creatinine Ratio Ur TNP <30 ug/mg cr [facility] Comment:Unable to calculate albumin/creatinine ratio due to lowmicroalbumin or creatinine result. Urine (Urine, Random) 07/14/2024 10:26 AM EDT 07/14/2024 11:08 AM EDT Result [facility] Kalee Kwong MD LAB URINE ORDERABLES Fin al Result [facility] [address] [place] [phone] * (ABNORMAL) POCT HGB A1C (06/04/2024 10:37 AM EST) Hemoglobin A1C 7.9(A) 4.0 - 6.0 % QC Media Lot # [id number] Lot# Expiration Date Blood 06/04/2024 10:3 7 AM EST Result [facility] Kalee Kwong MD POINT OF CARE TEST ENTER /EDIT ORDERABLES Final Result * POCT Glucose (06/04/2024 10:27 AM EST) Pathologist [facility] [place] Glucose Blood, POC 155 60 - 200 mg/dL QC Media Lot # [id number] Lot# Expiration Date [id number] Blood Capillary blood specimen / Unknown 06/04/2024 10:27 AM EST Result [facility] Kalee Kwong MD POINT OF CARE TEST ENTER /EDIT ORDERABLES Final Result * (ABNORMAL) Hm Colonoscopy (08/21/2022 9:55 AM EDT) Pathologist [facility] [place] Colonoscopy Abnormal( A) Normal Comment:polypectomis Result [facility] Kalee Kwong MD HEALTH MAINTENANCE Final Result * Hepatitis C Antibody with Reflex to HCV, RNA, Quantitative, Real-Time PCR (03/15/2022 11:18 AM EST) Pathologist [facility] [place] Hepatitis C Antibody NON-REACT ZANDER NON-REACT ZANDER [facility] Index 0.07 <1.00 [facility] Comment: HCV antibody was non-reactive. There is no laboratory evidence of HCV infection. In most cases, no further action is required. However, if recent HCV exposure is suspected, a test for HCV RNA (test code 52512) is suggested. For additional information please refer to http://education.[employer]/faq/FTD24w7 (This link is being provided for informational/ educational purposes only.) 03/15/2022 11:1 8 AM EST 03/15/2022 11:19 AM EST Narrative [facility] - 03/16/2022 7:05 PM EST FASTING:YES FASTING: YES Kalee Kwong MD LAB BLOOD ORDERABLES Fin al Result [facility] [address], [place] [address] [employer] [place] [facility] [address], [facility] [place] [phone] from Last 3 Months or Most Recently Relevant to Health Maintenance Insurance [facility] Care Teams Sound Equipment Mechanic Relationship Specialty Start Date End Date Kalee Kwong MD [address] [place] [phone] PCP - General Family Medicine 05/15/18
--- OUTSIDE RECORDS SUMMARY | 2024-07-14 12:20 | XMS_ITS | Encounter Summary ---
Author Organization [facility] Address [address] 7t [place] [address] Care Team Providers Care Unmanned Equipment Operator Name Role Phone Kalee Kwong MD Primary Care Provider + Reason for Visit * Reason Comments Med Refill Encounter Details Date Type Department Care Team ([facility] Contact Info) Description 09/01/2022 Refill [facility] MEDICINE [address] [place] [address] [phone] Kalee Kwong MD [address] [place] [address] Social History Tobacco Use Types Packs/Day Years Used Date Smoking Tobacco: Never Smokeless Tobacco: Never Alcohol Use Standard Drinks/Week Comments Yes 0 (1 standard drink = 0.6 oz pur e alcohol) oca Depression Answer Date Recorded Patient Health Questionnaire-9 Score 0 03/26/2022 Depression Answer Date Recorded Patient Health Questionnaire-2 Score 0 06/28/2022 Sex and Gender Information Value Date Recorded Sex Assigned at Male 02/05/2022 10:18 AM EDT Legal Sex Male 10:18 AM EDT Gender Identity Male 02/05/2022 10:18 AM EDT Sexual Orientation Straight 02/05/2022 10 :18 AM EDT COVID-19 Exposure Response Date Recorded In the last 10 days, have yo u been in contact with someone who was confirmed or suspected to have Coronavirus/COVID-19? No / Unsure 08/13/2022 1:59 PM EDT documented as of this encounter Plan of Treatment Upcoming Encounters Date Type Department Care Team ([facility] Contact Info) Description 08/03/2024 2:00 PM EDT Clinical Support [facility] DIABETES/NUTRITION [address] [place] [address] [place], [place] [phone] 08/14/2024 9:00 AM EDT Office Visit [facility] MEDICINE [address] [place], [place] [phone] Kalee Kwong MD [address] [place], [place] [phone] documented as of this encounter Visit Diagnoses Not on filedocumented in this encounter Additional Health Concerns Assessment Noted Time PHQ-9 Depression Total Score: 0 03/26/20 22 11:13 AM EST documented as of this encounter Care Teams Unmanned Equipment Operator Relationship Specialty Start Date End Date Kalee Kwong MD [address] [place] [address] [phone] PCP - General Family Medicine 05/15/18 documented as of this encounter
--- OUTSIDE RECORDS SUMMARY | 2024-07-14 12:20 | XMS_ITS | Encounter Summary ---
Author Organization [employer] Address [address] 7t [place] [address] Care Team Providers Care Strategic Solutions Consultant Name Role Phone Kalee Kwong MD Primary Care Provider + Reason for Visit * Reason Comments Med Refill Encounter Details Date Type Department Care Team ([facility] st Contact Info) Description 06/01/2023 Refill [facility] MEDICINE 230 [place], [place] [phone] Kalee Kwong MD 230 [place], [place] [phone] Diabetes mellitus type 2 in nonobese ([facility]) Social History Tobacco Use Types Packs/Day Years Used Date Smoking Tobacco: Never Smokeless Tobacco: Never Alcohol Use Standard Drinks/Week Comments Yes 0 (1 standard drink = 0.6 oz pur e alcohol) oca Depression Answer Date Recorded Patient Health Questionnaire-9 Score 0 03/26/2022 Housing Stability Answer Date Recorded What is your housing situation today? I have cindi navarro 01/23/[address] you li ve. Do you have problems with any of the following? None of the above 01/23/2023 Food Insecurity Answer Date Recorded Within the past 12 months, y ou worried that your food would run out before you got money to buy more: Never True 01/23/2023 Within the past 12 months,th e food you bought just didn't last and you didn't have enough money to get more: Never True Transportation Answer Date Recorded In the past 12 months, has l ack of transportation kept you from medical appts, meetings, work or from getting things needed for daily living? Yes, it has kept me from medical appointments or getting medications. 01/14/2023 Utilities Answer Date Recorded In the past 12 months, has t he electric, gas, oil or water company threatened to shut off services in your home? No 01/23/2023 Depression Answer Date Recorded Patient Health Questionnaire-2 Score 0 06/28/2022 Sex and Gender Information Value Date Recorded Sex Assigned at Male 02/05/2022 10:18 AM EDT Legal Sex Male 10:18 AM EDT Gender Identity Male 02/05/2022 10:18 AM EDT Sexual Orientation Straight 02/05/2022 10 :18 AM EDT documented as of this encounter Plan of Treatment Upcoming Encounters Date Type Department Care Team (Late st Contact Info) Description 08/03/2024 2:00 PM EDT Clinical Support [facility] DIABETES/NUTRITION [address] [place] [phone] [place] [address] 08/14/2024 9:00 AM EDT Office Visit [facility] MEDICINE [address] [place] [phone] Kalee Kwong MD [address] [place] [phone] documented as of this encounter Visit Diagnoses Diagnosis Diabetes mellitus type 2 in nonobese ([facility]) Type II or unspecified type diabetes mellitus without mention of complication, not stated as uncontrolled documented in this encounter Additional Health Concerns Assessment Noted Time PHQ-9 Depression Total Score: 0 03/26/20 22 11:13 AM EST documented as of this encounter Care Teams Strategic Solutions Consultant Relationship Specialty Start Date End Date Kalee Kwong MD [address] [place] [address] [phone] PCP - General Family Medicine 05/15/18 documented as of this encounter
--- OUTSIDE RECORDS SUMMARY | 2024-07-14 12:20 | XMS_ITS | Encounter Summary ---
Author Organization [employer] [facility] Address [address] 7t [place] [address] Care Team Providers Care Icu Registered Nurse Name Role Phone Kalee Kwong MD Primary Care Provider + Encounter Details Date Type Department Care Team (Late Contact Info) Description 09/20/2022 Abstract [facility] MEDICINE [address] [place] [address] [phone] Kalee Kwong MD 230 [place], [place] [phone] Social History Tobacco Use Types Packs/Day Years [...] Encounters Date Type Department Care Team (Late Contact Info) Description 08/03/2024 2:00 PM EDT Clinical Support [facility] DIABETES/NUTRITION 230 [place], [place] [phone] Pat O[address]nell [address] 230 [place], [place] [phone] 08/14/2024 9:00 AM EDT Office Visit [facility] MEDICINE 230 [place] [address] Kalee Kwong MD 230 [place] [address] documented as of this encounter Visit Diagnoses Not on filedocumented in this encounter Additional Health Concerns Assessment Noted Time PHQ-9 Depression Total Score: 0 03/26/20 22 11:13 AM EST documented as of this encounter Care Teams Icu Registered Nurse Relationship Specialty Start Date End Date Kalee Kwong MD 230 [place] [address] PCP - General Family Medicine 05/15/18 documented as of this encounter
--- OUTSIDE RECORDS SUMMARY | 2024-07-14 12:20 | XMS_ITS | Clinical Summary ---
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 ; COMMENT: [facility] 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) GERD (gastroesophageal reflux disease) DX:GERD (gastroesophageal reflux disease) History of prostate cancer 04/03/2018 DX:Hi story of prostate cancer; COMMENT: S/p prostatectomy HTN (hypertension) 10/25/2017 DX:HTN (hyper tension) Hyperlipidemia 10/25/2017 DX:Hyperlipidemi a Type 2 diabetes mellitus wit hout complication 10/25/2017 DX:Type 2 diabetes mellitus without complication (HCC) Family History Medical History Relation Name Comments Other: Other, throat cancer Father Colon cancer Mother Relation Name Status Comments Father Mother Social History Tobacco Use Types Packs/Day Years Used Date Smoking Tobacco: Never Smokeless Tobacco: Never Sex and Gender Information Value Date Recorded Sex Assigned at Not on file Legal Sex Male 7:35 PM EST Gender Identity Not on file Sexual Orientation Not on file Obstetrics History Plan of Treatment Health Maintenance Due Date Last Done Comments Diabetes: Annual GFR (Glomer ular Filtration Rate) 1953 Diabetes: Annual Foot Exam 10/14/1963 Diabetes: Annual Retina Eye Exam 10/14/1963 DTaP,Tdap,and Td Vaccines (1 - Tdap) 1972 Zoster Vaccines (1 of 2) 10/14/2003 Pneumococcal Vaccine: 50+ Ye ars (2 of 2 - PCV) 02/12/2017 02/13/2016 Abdominal Aortic Aneurysm (A AA) Screen 03/10/2022 Cholesterol Screening (Lipid Panel) 03/10/2022 Colorectal Cancer Screening: Colonoscopy 03/10/2022 Depression Screening 03/10/2022 Falls Risk Assessment 03/10/2022 Hepatitis C Screening 03/10/2022 Social Influencers of Health Screening 03/10/2022 Diabetes: Annual Urine Albumin-Creatinine Ratio (uACR) 03/22/2022 Diabetes: Blood Sugar Contro l Test (HGBA1C) 03/22/2022 Hypertension/CHF/CAD Annual BMP Blood Test 03/22/2022 COVID-19 Vaccine (2023-2 5 season) 2023 Influenza Vaccine (Season Ended) 2024 RSV Immunization Adult Patie nts (1 - 1-dose 75+ series) 2028 HIB Vaccines Aged Out No longer eligi ble based on patient's age to complete this topic HPV Vaccines Aged Out No longer eligi ble based on patient's age to complete this topic Hepatitis A Vaccines Aged Out No long er eligible based on patient's age to complete this topic Hepatitis B Vaccines Aged Out No long er eligible based on patient's age to complete this topic IPV Vaccines Aged Out No longer eligi ble based on patient's age to complete this topic MMR Vaccines Aged Out No longer eligi ble based on patient's age to complete this topic Meningococcal ACWY Vaccine Aged Out N o longer eligible based on patient's age to complete this topic Meningococcal B Vaccine Aged Out No l onger eligible based on patient's age to complete this topic RSV Immunization Patients Un tawanda 20 months Aged Out No longer eligible b ased on patient's age to complete this topic Varicella Vaccines Aged Out No longer eligible based on patient's age to complete this topic Care Teams Building Rental Manager Relationship Specialty Start Date End Date Tyrel Aguirre MD PCP - General Internal Medicine 05/16/21
--- OUTSIDE RECORDS SUMMARY | 2024-07-14 12:20 | XMS_ITS | Encounter Summary ---
Author Organization [employer] Address [address] 7t [place] [address] Care Team Providers Care Urgent Care Technician Name Role Phone Kalee Kwong MD Primary Care Provider + Reason for Visit * Reason Comments Med Refill Encounter Details Date Type Department Care Team (Late st Contact Info) Description 12/05/2023 Refill [facility] MEDICINE [address] [place], [place] [phone] Ariella Aceves MD 230 [place], [place] [phone] Primary hypertension; Diabetes mellitus type 2 in nonobese ([facility]/HCC) Social History Tobacco Use Types Packs/Day Years [...] Description 08/03/2024 2:00 PM EDT Clinical Support [facility] DIABETES/NUTRITION [address] [place] [address] [place] [address] 08/14/2024 9:00 AM EDT Office Visit [facility] MEDICINE [address] [place] [phone] Kalee Kwong MD [address] [place] [phone] documented as of this encounter Visit Diagnoses Diagnosis Primary hypertension Unspecified essential hypertension Diabetes mellitus type 2 in nonobese ([facility]) Type II or unspecified type diabetes mellitus without mention of complication, not stated as uncontrolled documented in this encounter Additional Health Concerns Assessment Noted Time PHQ-9 Depression Total Score: 0 03/26/20 22 11:13 AM EST documented as of this encounter Care Teams Urgent Care Technician Relationship Specialty Start Date End Date Kalee Kwong MD [address] [place] [phone] PCP - General Family Medicine 05/15/18 documented as of this encounter
--- OUTSIDE RECORDS SUMMARY | 2024-07-14 12:20 | XMS_ITS | Encounter Summary ---
Author Organization [employer] Address [address] 7t [place] [address] Care Team Providers Care Mediator Name Role Phone Kalee Kwong MD Primary Care Provider + Reason for Visit * Reason Comments Med Change Request Encounter Details Date Type Department Care Team ([facility] st Contact Info) Description 05/30/2023 Refill [facility] MEDICINE 230 [place], [place] [phone] Kalee Kwong MD 230 [place], [place] [phone] Diabetes mellitus type 2 in nonobese ([facility]/HCC) Social History Tobacco Use Types Packs/Day Years [...] Description 08/03/2024 2:00 PM EDT Clinical Support [facility] DIABETES/NUTRITION [address] [place] [phone] [place] [address] 08/14/2024 9:00 AM EDT Office Visit [facility] MEDICINE [address] [place] [address] Kalee Kwong MD [address] [place] [phone] documented as of this encounter Visit Diagnoses Diagnosis Diabetes mellitus type 2 in nonobese ([facility]) Type II or unspecified type diabetes mellitus without mention of complication, not stated as uncontrolled documented in this encounter Additional Health Concerns Assessment Noted Time PHQ-9 Depression Total Score: 0 03/26/20 22 11:13 AM EST documented as of this encounter Care Teams Mediator Relationship Specialty Start Date End Date Kalee Kwong MD [address] [place] [address] [phone] PCP - General Family Medicine 05/15/18 documented as of this encounter
--- OUTSIDE RECORDS SUMMARY | 2024-07-14 12:20 | XMS_ITS | Encounter Summary ---
Author Organization [employer] Address [address] [facility] [address] [facility] [address] 7t [place] [address] Care Team Providers Care Pharmacologist Name Role Phone Kalee Kwong MD Primary Care Provider + Reason for Visit * Reason Onset Date Comments Returning call 05/21/2024 Encounter Details Date Type Department Care Team ([facility] st Contact Info) Description 05/21/2024 Telephone [facility] MEDICINE [address] [place], [place] [phone] Kalee Kwong MD 230 [place], [place] [phone] Returning call Social History Tobacco Use Types Packs/Day Years [...] AM EDT documented as of this encounter Miscellaneous Notes * Telephone Encounter - Emiliano Carrillo - 05/21/2024 12:16 PM EST Tc from pt returning call. documented in this encounter Plan of Treatment Upcoming Encounters Date Type Department Care Team (Late st Contact Info) Description 08/03/2024 2:00 PM EDT Clinical Support [facility] DIABETES/NUTRITION [address] [place] [address] [place] [address] 08/14/2024 9:00 AM EDT Office Visit [facility] MEDICINE [address] [place] [address] Kalee Kwong MD [address] [place] [phone] documented as of this encounter Visit Diagnoses Not on filedocumented in this encounter Additional Health Concerns Assessment Noted Time PHQ-9 Depression Total Score: 0 02/28/20 24 10:07 AM EST documented as of this encounter Care Teams Pharmacologist Relationship Specialty Start Date End Date Kalee Kwong MD [address] [place] [phone] PCP - General Family Medicine 05/15/18 documented as of this encounter
--- OUTSIDE RECORDS SUMMARY | 2024-07-14 12:20 | XMS_ITS | Encounter Summary ---
Author Organization [employer] Address [address] 7t [place] [address] Care Team Providers Care Remote Computer Terminal Operator Name Role Phone Kalee Kwong MD Primary Care Provider + Encounter Details Date Type Department Care Team (Latest Contact Info) Description 07/14/2024 Travel Social History Tobacco Use Types Packs/Day Years [...] housing situation today? I have cindi navarro 02/28/[address] you [...] Description 08/03/2024 2:00 PM EDT Clinical Support [facility] DIABETES/NUTRITION [address] [place] [address] [place] [address] 08/14/2024 9:00 AM EDT Office Visit [facility] MEDICINE [address] [place] [address] Kalee Kwong MD 230 [place] [address] documented as of this encounter Visit Diagnoses Not on filedocumented in this encounter Additional Health Concerns Assessment Noted Time PHQ-9 Depression Total Score: 0 02/28/20 24 10:07 AM EST documented as of this encounter Care Teams Remote Computer Terminal Operator Relationship Specialty Start Date End Date Kalee Kwong MD [address] [place] [phone] PCP - General Family Medicine 05/15/18 documented as of this encounter
[2024-07-14 14:49] LABS: Reflex LDLD? No
[2024-07-16 23:39] LABS: TS Negative Control Passed; TS Panel A 0; TS Panel B 0; TS Positive Control Passed; TSpotTB Negative (Negative)
== END 2024-07-14 10:24 | disposition home or self-care (01) ==
LOC: HO.HHCL 10:23
PROVIDERS: Visit Provider Internal Medicine
DX: E11.9 Type 2 diabetes mellitus without complications (principal); R20.0 Anesthesia of skin; R20.2 Paresthesia of skin
CPT/HCPCS: 36415; 80048; 80061; 82043; 82570; 86481

== ENCOUNTER 2024-11-30 09:43 | Outpatient (REF) | payer OTHER, SELFPAY ==
--- OUTSIDE RECORDS SUMMARY | 2024-11-30 10:33 | XMS_ITS | Clinical Summary ---
Author Organization [facility] Address [address] [place] [address] Care Team Providers Care Women'S Ministry Director Name Role Phone Unavailable Primary Care Provider [...] Encounters Date Type Department Care Team Description 11/18/2024 2:00 PM EDT Office Visit [address] [phone] Bahman Mckeon RDH 11/04/2024 9:00 AM EDT Office Visit [address] [phone] Bakari Young DDS 11/03/2024 10:20 AM EDT Dental Interim Note [address] [phone] Bakari Augustine DMD 11/02/2024 2:00 PM EDT Office Visit [address] [phone] Curt Rojas DMD from Last 3 Months [...] Sign Reading Time Taken Comments Blood Pressure 161/92 11/02/2024 2:19 PM EDT Pulse 89 11/02/2024 2:19 PM EDT Temperature - - Respiratory Rate - - Oxygen Saturation - - Inhaled Oxygen Concentration - - Weight - - Height - - Body Mass Index - - Plan of Treatment Upcoming Encounters Date Type Department Care Team (Late st Contact Info) Description 12/17/2024 10:20 AM EDT Office Visit [facility] St Dental [address] [place] [phone] Phu Shelton DDS [address] [place] [phone] 12/21/2024 4:00 PM EDT Office Visit [facility] St Dental [address] [place] [phone] Curt Rojas DMD [address] [place] [address] 02/08/2025 10:20 AM EST Office Visit [facility] St Dental [address] [place] [phone] [place] [address] [place] [phone] Health Maintenance Due Date Last Done Comments Medicare Annual Wellness Visit 10/14/1971 CT Colonography 1998 Colonoscopy 1998 Colorectal Cancer Screening 1998 FIT/gFOBT 1998 Fecal DNA 1998 Flexible Sigmoidoscopy 1998 Falls Prevention 2018 [id number] ( season) 2023 10/05/2021, 04/19/2021, 06/30/2020, Additional history exists Alcohol and Drug Screen 04/08/2024 Depression Annual Screen 04/08/2024 Imm-Influenza (#1) 2024 12/02/2023, 0 12/11/2022, 12/22/2021, Additional history exists Dental BW 07/18/2025 07/16/2024, 01/06, 08/07/2022 Dental Examination 07/18/2025 07/16/2024, 1 , 08/07/2022, Additional history exists Dental Perio Charting 07/18/2025 07/16/2024 , 01/16/2024, 08/07/2022, Additional history exists Dental Prophy 07/18/2025 07/16/2024, 01/06, 09/12/2023, Additional history exists Hypertension Screening (#1) 11/02/2025 Tobacco Screening 11/02/2025 11/02/2024 Lipid Screening 03/15/2027 03/15/2022 Dental FMX/Pano 11/05/2029 11/03/2024, 07/07/2024 Imm-DTaP/Tdap/Td (3 - Td or Tdap) 12/27/2032 12/27/2022, 07/23/2012, 05/02/2006 Imm-Zoster, Recombinant Completed 03/29/2020, 01/21 Hepatitis C Screening Completed 03/15/2022 Imm-Pneumococcal 50+ Completed 12/27/2022, 02/13/2016, 08/06/2012, Additional history exists Procedures Procedure Name Priority Date/Time Associated Diagnosis Comments LIMITED ORAL EVALUATION - PROBLEM FOCUSED Routine 11/18/2024 2:00 PM EDT Fractured dental tenriism with loss of material INTRAORAL - PERIAPICAL FIRST RADIOGRAPHIC IMAGE Routine 11/18/2024 2:00 PM EDT Fractured dental tenriism with loss of material CASE PRESENTATION SUBS DTL & EXTENSIVE TX PLN Routine 11/18/2024 2:00 PM EDT Fractured dental tenriism with loss of material 10 DIL COMPOSITE - WISDOM (NON BILLABLE) Routine 11/18/2024 12:00 AM EDT 29 EXTRACTION ERUPTED TOOTH OR EXPOSED ROOT Routine 11/04/2024 9:00 AM EDT Periodontal disease Fracture of crown, enamel, and dentin of tooth without pulp exposure CASE PRESENTATION SUBS DTL & EXTENSIVE TX PLN Routine 11/04/2024 9:00 AM EDT Fracture of crown, enamel, and dentin of tooth without pulp exposure Periodontal disease PANORAMIC RADIOGRAPHIC IMAGE Routine 11/03/2024 10:20 AM EDT Partial edentulism, unspecified edentulism class COMP PERIODONTAL EVALUATION - NEW/EST PATIENT Routine 07/16/2024 9:40 AM EDT Encounter for dental examination BITEWINGS - TWO RADIOGRAPHIC IMAGES Routine 07/16/2024 9:40 AM EDT Defective dental tenriism Fracture of crown, enamel, and dentin of tooth without pulp exposure Encounter for dental examination PROPHYLAXIS - ADULT Routine 07/16/2024 9 :40 AM EDT Encounter for dental examination PERIODIC ORAL EVALUATION ESTABLISHED PATIENT Routine 07/16/2024 9:40 AM EDT Encounter for dental examination from Last 3 Months or Most Recently Relevant to Health Maintenance Insurance [facility]
--- OUTSIDE RECORDS SUMMARY | 2024-11-30 10:33 | XMS_ITS | Encounter Summary ---
Author Organization [employer] Address [address] [facility] 7t [place] [address] Care Team Providers Care Contract Engineer Name Role Phone Kalee Kwong MD Primary Care Provider + Encounter Details Date Type Department Care Team (Late st Contact Info) Description 09/20/2022 Abstract [facility] MEDICINE 230 [place], [place] [phone] Kalee Kwong MD 230 [place], [place] [phone] Social History Tobacco Use Types Packs/Day Years [...] Care Team (Late st Contact Info) Description 12/28/2024 9:30 AM EDT Clinical Support [facility] DIABETES/NUTRITION 230 [place], [place] [phone] Pat O[address]nell [address] 230 [place], [place] [phone] documented as of this encounter Visit Diagnoses Not on filedocumented in this encounter Additional Health Concerns Assessment Noted Time PHQ-9 Depression Total Score: 0 03/26/20 22 11:13 AM EST documented as of this encounter Care Teams Contract Engineer Relationship Specialty Start Date End Date Kalee Kwong MD [address] [place] [address] PCP - General Family Medicine 05/15/18 documented as of this encounter
--- OUTSIDE RECORDS SUMMARY | 2024-11-30 10:33 | XMS_ITS | Clinical Summary ---
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 ; COMMENT: 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) GERD (gastroesophageal reflux disease) DX:GERD (gastroesophageal reflux disease) History of prostate cancer 04/03/2018 DX:Hi story of prostate cancer; COMMENT: S/p prostatectomy HTN (hypertension) 10/25/2017 DX:HTN (hyper tension) Hyperlipidemia 10/25/2017 DX:Hyperlipidemi a Type 2 diabetes mellitus wit hout complication (CMS/HCC V24, CMS/HCC V28) 10/25/2017 DX:Type 2 diabetes mellitus without complication [...] Health Maintenance Due Date Last Done Comments DTaP,Tdap,and Td Vaccines (1 - Tdap) 1972 Zoster Vaccines (1 of 2) 10/14/2003 Pneumococcal Vaccine: 50+ Ye ars (2 of 2 - PCV) 02/12/2017 02/13/2016 COVID-19 Vaccine (1 - 2023-2 5 season) 2023 Depression Screening 04/08/2024 Influenza Vaccine (#1) 2024 RSV Immunization Adult Patie nts (1 [...] age to complete this topic Care Teams Nature Photographer Relationship Specialty Start Date End Date Tyrel Aguirre MD PCP - General Internal Medicine 05/16/21
[2024-11-30 11:48] LABS: Anion Gap 16 (12-20); Blood Urea Nitrogen 16 mg/dL (9-16); Calcium 9.6 mg/dL (8.4-10.2); Carbon Dioxide 28 mmol/L (22-29); Chloride 105 mmol/L (96-108); Estimated Glomerular Filt Rate > 60; Potassium 4.5 mmol/L (3.3-5.1); Sodium 144 mmol/L (135-145)
== END 2024-11-30 09:44 | disposition home or self-care (01) ==
LOC: HO.HHCL 09:43
PROVIDERS: PCP Internal Medicine; Visit Provider Internal Medicine
DX: E11.9 Type 2 diabetes mellitus without complications (principal)
CPT/HCPCS: 36415; 80048